=== PATIENT | female | born 1965 | race African-American/Black ===

== ENCOUNTER 2023-01-08 14:47 | Emergency (ER) | payer OTHER ==
[~2023-01-08] VITALS: Ht 167.6 cm; Wt 59.0 kg
[2023-01-08 14:49] VITALS: BP 145/89; TEMP 98
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
[2023-01-08] MEDS ORDERED: CYCLOBENZAPRINE 10 MG TABLET PO ONE (15:00)
[2023-01-08] MEDS ORDERED: CYCLOBENZAPRINE 10 MG TABLET ONE (15:00)
[2023-01-08] MEDS ORDERED: IBUPROFEN 600 MG TABLET PO ONE (15:00)
[2023-01-08] MEDS ORDERED: IBUPROFEN 600 MG TABLET ONE (15:01)
[2023-01-08] MEDS ORDERED: CYCL5TAB PO (15:38)
[2023-01-08 15:45] VITALS: O2SAT 99
--- NOTE | 2023-01-08 15:45 | NUR ---
Patient discharged to home in stable condition. Written and verbal after care instructions given. Patient verbalizes understanding of instruction.
== END 2023-01-08 15:45 | disposition home or self-care (01) ==
LOC: ER 14:55
DX: M54.50 Low back pain, unspecified (principal); V89.2XXA Person injured in unspecified motor-vehicle accident, traffic, initial encounter; Y93.89 Activity, other specified; Y92.89 Other specified places as the place of occurrence of the external cause; Y99.8 Other external cause status